=== PATIENT | male | born 2000 | race American Indian/Alaskan Native ===

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

== ENCOUNTER 2022-06-24 15:12 | Emergency (ER) | payer MEDICAID ==
[2022-06-24 16:01] VITALS: BP 141/62; PULSE 97
== END 2022-06-24 15:35 | disposition left against medical advice (07) ==
LOC: DL.ED 15:12
DX: Z53.21 Procedure and treatment not carried out due to patient leaving prior to being seen by health care provider (principal)